=== PATIENT | male | born 1995 | race Caucasian/White ===

== ENCOUNTER 2020-03-16 16:09 | Outpatient (REF) | payer BC, SELFPAY | END 2020-03-16 16:10 | disposition home or self-care (01) | LOC: HO.LAB 16:09 | PROVIDERS: Visit Provider Internal Medicine | DX: Z20.828 Contact with and (suspected) exposure to other viral communicable diseases (principal) | CPT/HCPCS: C9803; U0003 ==

== ENCOUNTER 2020-08-23 17:29 | Outpatient (REF) | payer BC, SELFPAY | END 2020-08-23 17:30 | disposition home or self-care (01) | LOC: HO.LAB 17:29 | PROVIDERS: Visit Provider Internal Medicine | DX: Z20.822 Contact with and (suspected) exposure to COVID-19 (principal) | CPT/HCPCS: U0003; U0005 ==

== ENCOUNTER 2021-03-14 08:19 | Outpatient (REF) | payer BC, SELFPAY ==
[2021-03-14 09:24] LABS: COVID-19 Test Negative (Negative)
== END 2021-03-14 08:20 | disposition home or self-care (01) ==
LOC: HO.LAB 08:19
PROVIDERS: Visit Provider Internal Medicine
DX: Z20.822 Contact with and (suspected) exposure to COVID-19 (principal)
CPT/HCPCS: 36415; 87635; C9803

== ENCOUNTER 2021-03-19 13:46 | Outpatient (REF) | payer BC, SELFPAY ==
[2021-03-19 14:18] LABS: Binax Internal Control QC Valid; Binax Lot number: 9864; Binax Now Covid-19 Ag Positive (Negative)
== END 2021-03-19 13:47 | disposition home or self-care (01) ==
LOC: HO.LAB 13:46
PROVIDERS: Visit Provider Internal Medicine
DX: Z20.822 Contact with and (suspected) exposure to COVID-19 (principal)
CPT/HCPCS: 36415; C9803